=== PATIENT | female | born 2000 | race Caucasian/White ===

== ENCOUNTER 2024-04-29 09:19 | Emergency (ER) | payer BC, SELFPAY ==
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
[2024-04-29 11:00] VITALS: PULSE 70; RESP 16; O2SAT 99
== END 2024-04-29 11:00 | disposition home or self-care (01) ==
LOC: CHSED 10:47
PROVIDERS: Emergency Provider Emergency Medicine; PCP Family Medicine
DX: S00.33XA Contusion of nose, initial encounter (principal); W50.0XXA Accidental hit or strike by another person, initial encounter
CPT/HCPCS: 70160; 99283

== ENCOUNTER 2024-08-25 20:51 | Emergency (ER) | payer BC, SELFPAY ==
--- NOTE | ~2024-08-25 | XR_ITS ---
HISTORY: TRAUMA, distal left 5th toe pain COMPARISON: None TECHNIQUE: 2 views of the left fifth toe FINDINGS: No acute or subacute fracture. Joint spaces are preserved and alignment is maintained. Soft tissues are unremarkable without radiopaque foreign body or significant calcification. Age-appropriate mineralization. IMPRESSION: No acute fracture or dislocation. Reviewed, dictated and finalized at location A.
[2024-08-25 20:51] VITALS: BP 128/76; PULSE 84; RESP 18; TEMP 36.3; O2SAT 99
--- OUTSIDE RECORDS SUMMARY | 2024-08-25 20:52 | XMS_ITS | Data Portability ---
Author Organization AYESHA Alycia VAUGHN Address [address] [facility] [place] [address] Care Team Providers Care Doper Name Role Phone RAYMOND FARAHCY Greenskeeper Laborer Assessment Encounter Date Assessment Date Assessment LastModified by Organization Details LastModified Time 12/21/2022 12/21/2022 39 weeks+ , plan post dates induction next week with favorable cervix Not available 12/21/2022 11:11:33 01/09/2023 01/09/2023 doing well post , no PPD issues bottle feeding Not available 01/09/2023 10:09:58 02/06/2023 02/06/2023 Normal post exam after first vaginal delivery. baby doing well pumping plans IUD with first cycle, condom use until then Not available 02/06/2023 11:01:23 05/11/2023 05/11/2023 Mirena inserted without difficulty Dr Bailon assisting Not available 05/11/2023 10:49:45 08/07/2024 08/07/2024 buckle stringer exam benign likely early UTI, will RX with macrobid doing well with IUD Not available 08/07/2024 10:26:54 Plan of Treatment Reminders Order Date Submit Date Provider Last Modified By Organization Details Last Modified Time Details Appointments None recorded. Lab cytology report, thin prep, smear or scraping, cervical or vaginal 2024 025 [facility], [address] [place] [address] 2, [place], [address], 03/23/202 5 11:20:00 cytology report, thin prep, smear or scraping, cervical or vaginal 2022 023 [facility], [address] [facility] 2, [place], [address], 3 16:16:55 urinalysis, dipstick 2022 023 In-Office Order, Internal Use Only DO Not Attach Compendium DO Not Attach Compendium, Do Not Delete/merge, [id number] 3 11:11:34 Referral None recorded. Procedures None recorded. Surgeries None recorded. Imaging None recorded. Medication Orders Macrobid 100 mg capsule 2024 025 [id number], [address], [place], [id number], 5 10:27:01 Mirena 21 mcg/24 hr (up to 8 years) 52 mg intrauterin e device 2022 023 [id number], [address], [place], [id number], 3 10:49:46 Patient TargetsNo targets recorded. Patient Instructions Encounter Date Encounter Id Patient Instructions Last Modified By Organization Details Last Modified Time 01/09/2023 [id number] edinburgh depression scale* Not available 01/09/2023 10:09:59 02/06/2023 [id number] edinburgh depression scale* Not available 02/06/2023 11:01:24 08/07/2024 [id number] A healthy lifestyle: care instructions Not available 08/07/2024 10:20:50 Quitting Tobacco : Care Instructions Not available 08/07/2024 10:20:50 Reason for Referral None Reported. Results Created Date Observation Date Name Description Value Unit Range Abnormal Flag Note LastModifiedBy Organization Detail LastModifiedTime 11/24/1911/23/2022 urina lysis , dipst ick Protein Negati ve Not Available In-Office Order Internal Use Only DO Not Attach Compendium DO Not Attach Compendium, Do Not Delete/merge, [id number] 11/22/2022 10:11:13 11/24/1911/23/2022 urina lysis , dipst ick Glucose Negati ve Not Available In-Office Order Internal Use Only DO Not Attach Compendium DO Not Attach Compendium, Do Not Delete/merge, 11/22/2022 10:11:13 12/01/1911/30/2022 urina lysis , dipst ick Protein Negati ve Not Available In-Office Order Internal Use Only DO Not Attach Compendium DO Not Attach Compendium, Do Not Delete/merge, 11/29/2022 12:07:36 12/01/1911/30/2022 urina lysis , dipst ick Glucose Negati ve Not Available In-Office Order Internal Use Only DO Not Attach Compendium DO Not Attach Compendium, Do Not Delete/merge, 11/29/2022 12:07:36 12/08/19 23 12/07/2022 urina lysis , dipst ick Protein Negati ve Not Available In-Office Order Internal Use Only DO Not Attach Compendium DO Not Attach Compendium, Do Not Delete/merge, 12/06/2022 13:42:58 12/08/1912/07/2022 urina lysis , dipst ick Glucose Negati ve Not Available In-Office Order Internal Use Only DO Not Attach Compendium DO Not Attach Compendium, Do Not Delete/merge, 12/06/2022 13:42:58 12/15/19 23 12/14/2022 urina lysis , dipst ick Protein Negati ve Not Available In-Office Order Internal Use Only DO Not Attach Compendium DO Not Attach Compendium, Do Not Delete/merge, 12/13/2022 09:56:35 12/15/19 23 12/14/2022 urina lysis , dipst ick Glucose Negati ve Not Available In-Office Order Internal Use Only DO Not Attach Compendium DO Not Attach Compendium, Do Not Delete/merge, 12/13/2022 09:56:35 12/22/19 23 12/21/2022 urina lysis , dipst ick Protein Negati ve Not Available In-Office Order Internal Use Only DO Not Attach Compendium DO Not Attach Compendium, Do Not Delete/merge, [id number] 12/20/2022 11:26:07 12/22/19 23 12/21/2022 urina lysis , dipst ick Glucose Negati ve Not Available In-Office Order Internal Use Only DO Not Attach Compendium DO Not Attach Compendium, Do Not Delete/merge, [id number] 12/20/2022 11:26:07 01/10/20 23 01/09/2023 edinb urgh postn atal depre ssion scale * Score 1 Not Available In-Office Order Internal Use Only DO Not Attach Compendium DO Not Attach Compendium, Do Not Delete/merge, [id number] 01/09/2023 09:56:18 02/07/20 23 02/07/2023 IGP, RFX APTIM A HPV ASCU diagnosis: Commen t NEGAT HAL FOR INTRA EPITH ELIAL LESRONAK N OR RICHARD BELL . POST- PARTU M ZHANG ES ARE PRESE NT. Not Available [facility] [address] [facility], [place], [address], 02/07/2023 16:16:55 02/07/20 23 02/07/2023 IGP, RFX APTIM A HPV ASCU specimen adequacy: Commen t Satis facto ry for evalu ation . Endoc ervic al and/o r squam ous metap lasti c cells (endo cervi juana compo nent) are prese nt. Not Available [facility]) [address] [facility], [place], [address], 02/07/2023 16:16:55 02/07/20 23 02/07/2023 IGP, RFX APTIM A HPV ASCU clinician provided ICD10: Commen t Z39.2 Not Available [facility]) [address] [facility], [place], [address], 02/07/2023 16:16:55 02/07/20 23 02/07/2023 IGP, RFX APTIM A HPV ASCU performed by: Anamika franks, Cytojagdeep gannon (ASCP ) Not Available [facility] [address] [place], [address], 02/07/2023 16:16:55 02/07/20 23 02/07/2023 IGP, RFX APTIM A HPV ASCU . . Not Available [facility] [address] [place], [address], 02/07/2023 16:16:55 02/07/20 23 02/07/2023 IGP, RFX APTIM A HPV ASCU note: Anamika t The Pap smear is a scree bronson test desig fredi to aid in the detec tion of sherman ligna nt and malig nant condi tions of the uteri ne cervi x. It is not a diagn ostic proce dure and shoul d not be used as the sole means of detec ting cervi juana cance r. Both false -posi tive and false -nega tive repor ts do occur . Not Available [facility] [address] [place], [address], 02/07/2023 16:16:55 02/07/20 23 02/07/2023 IGP, RFX APTIM A HPV ASCU test methodology: Anamika t This liqui d based ThinP rep(R ) pap test was scree fredi with the use of an image guide d syste m. Not Available [facility]) [address] [place], [address], 02/07/2023 16:16:55 02/07/20 23 02/07/2023 IGP, RFX APTIM A HPV ASCU . Anamika t The HPV DNA refle x crite pretty were not met with this speci men resul t there fore, no HPV testi ng was perfo rmed. Not Available [facility] [address] [place], [address], 02/07/2023 16:16:55 02/07/2002/06/2023 edinb urgh postn atal depre ssion scale * Score 0 Not Available In-Office Order Internal Use Only DO Not Attach Compendium DO Not Attach Compendium, Do Not Delete/merge, [id number] 02/06/2023 10:22:45 08/08/19 25 08/10/2024 IGP, RFX APTIM A HPV ASCU diagnosis: ANAMIKA HONG FOR INTRA EPITH ELIAL CARA Felipe OR RICHARD BELL . Not Available [facility] [address] [facility], [place], [address], 08/10/2024 11:20:00 08/08/19 25 08/10/2024 IGP, RFX APTIM A HPV ASCU specimen adequacy: ANAMIKA Gannon Satis factnima velez for evalu ation . Endoc ervic al and/o r squam ous metap lasti c cells (endo cervi juana compo nent) are prese nt. Not Available [facility] [address] [facility], [place], [address], 08/10/2024 11:20:00 08/08/19 25 08/10/2024 IGP, RFX APTIM A HPV ASCU clinician provided ICD10: ANAMIKA Gannon Z01.4 19 Not Available [facility] [address] [place], [address], 08/10/2024 11:20:00 08/08/19 25 08/10/2024 IGP, RFX APTIM A HPV ASCU performed by: ANAMIKA pinedo, Cytot gurjit gannon (ASCP ) Not Available [facility] [address] [place], [address], 08/10/2024 11:20:00 08/08/19 25 08/10/2024 IGP, RFX APTIM A HPV ASCU . . Not Available [facility] [address] [place], [address], 08/10/2024 11:20:00 08/08/19 25 08/10/2024 IGP, RFX APTIM A HPV ASCU note: COMMEN T The Pap smear is a scree bronson test umesh rai to aid in the detec tion of sherman ligna nt and malig nant condi tions of the uteri ne cervi x. It is not a diagn ostic proce dure and shoul d not be used as the sole means of detec ting cervi juana cance r. Both false -posi tive and false -nega tive repor ts do occur . Not Available [facility] [address] [place], [address], 08/10/2024 11:20:00 08/08/19 25 08/10/2024 IGP, RFX APTIM A HPV ASCU test methodology: COMMEN T This liqui d based ThinP rep(R ) pap test was screclark rai with the use of an image guide jose luna. Not Available [facility] [address] [facility], [place], [address], 08/10/2024 11:20:00 08/08/19 25 08/10/2024 IGP, RFX APTIM A HPV ASCU . COMMEN T The HPV DNA refle x crite pretty were not met with this speci men resul t there fore, no HPV testi ng was perfo rmed. Not Available [facility] [address] [place], [address], 08/10/2024 11:20:00 12/07/19 23 12/06/2022 US, obste tric, follo w-up No observ ation record ed. [facility] [address] [facility] [place], [address], 12/07/2022 09:47:37 01/12/20 23 12/06/2022 US, obste tric, follo w-up No observ ation record ed. [email or web address] [facility] [address] [facility], [address], 01/11/2023 09:56:31 Result Notes None recorded. Problems Name Problem SNOMED Code Status Onset Date Resolution Date Notes Provider Name and Address Organization Details Recorded Time 09774780 Completed 202201/09/2023 JCARLOS Pedroza null, [place] - [facility] 3 10:02:16 Acute upper respirato ry infection 94380639 Active Sharon Burch [place], [place] [facility] 6 10:55:17 Contact dermatiti s 89026650 Active Sharon Burch [place], [place] [facility] 6 10:55:17 Closed fracture of nasal bones 21727826 Active 2014 Sharon Burch [place], [place] [facility] 6 10:55:17 Fatigue 13494082 Active Sharon Burch [place] [facility] 6 10:55:17 Sprain of ankle 67745647 Active Ishan Bell MD Attn: Accounting,[address] [place], [address], [place] [facility] 6 10:29:38 Problem Notes None recorded. Procedures Surgical History Date Name Laterality Status Provider Name and Address Organization Details Recorded Time 5 Date of Last Pap Smear completed JCARLOS Pedroza [place] - [facility] 08/11/2024 09:39:19 3 IUD Insertion completed Cristóbal Rae MD Attn: Accounting,[address] [place], [address], [place] [facility] 05/11/2023 10:48:04 2 Control Implant Removal completed JOSEPH Kern Attn: Accounting,[address] [facility] [place] [place], [address], [place] [facility] 10/25/2021 10:33:37 1 Control Implant Removal completed JOSEPH Kern Attn: Accounting,[address] [facility], [place], [address], [place] [facility] 10/12/2020 11:54:50 1 Control Implant Insertion completed JOSEPH Kern Attn: Accounting,[address] [facility], [place], [address], [place] [facility] 10/12/2020 11:54:47 8 Control Implant Insertion completed JOSEPH Kern Attn: Accounting,[address] [facility], [place], [address], [place] [facility] 03/27/2018 10:18:01 5 Nasal Surgery completed Jo Ann Rhodes MD Attn: Accounting,[address] [facility], [place], [address], [place] [facility] 02/08/2015 13:32:59 Imaging Results Imaging Date Name Status LastModified by Organiz ation Details LastModified Time 12/06/2022 US, obstetric, follow-up completed [address] [place], [address], 12/07/2022 09:47:37 12/06/2022 US, obstetric, follow-up completed [email or web address] [address] [place], [address], 01/11/2023 09:56:31 Procedure Notes None recorded. Medical Equipment None Reported. Allergies No known drug allergies Medications Name Sig Start Date Stop Date Status Note LastModified by Organization Details LastModified Time Prescript ion - Prior Authoriza tion Request 07/20 completed Not Available Not Available Not Available cyclobenz aprine 10 mg tablet 02/03 completed Not Available Not Available Not Available amoxicill in 500 mg capsule TAKE 1 CAPSULE BY MOUTH THREE TIMES DAILY 05/18 completed Not Available Not Available Not Available Mirena 21 mcg/24 hr (up to 8 years) 52 mg intrauter ine device Take 1 device by intraute rine route. 2022 active ordered through pts insuranc e Not Available Not Available Not Available prednison e 10 mg tablet 02/03 completed Not Available Not Available Not Available ketoconaz ole 2 % shampoo Use on scalp twice a week for 2 weeks. 08/24 completed Not Available Not Available Not Available meloxicam 15 mg tablet TAKE 1 TABLET BY MOUTH DAILY WITH FOOD 02/03 completed Not Available Not Available Not Available sumatript an 25 mg tablet TAKE 1 TABLET BY MOUTH AT ONSET OF HEADACHE MAY REPEAT AFTER 2 HOURS 02/03 completed Not Available Not Available Not Available Debrox 6.5 % ear drops 10/05 completed Not Available Not Available Not Available naproxen 250 mg tablet Take 1 tablet twice a day by oral route as needed for 7 days. 08/24 completed Not Available Not Available Not Available hydroxyzi ne pamoate 50 mg capsule TAKE 2 CAPSULES BY MOUTH AT BEDTIME 02/03 completed Not Available Not Available Not Available tramadol 50 mg tablet TAKE 1 TO 2 TABLETS BY MOUTH EVERY 6 HOURS NEEDED FOR PAIN 02/03 completed Not Available Not Available Not Available cefadroxi l 500 mg capsule 07/20 completed Not Available Not Available Not Available malathion 0.5 % lotion Apply 1 applicat ion by topical route for 1 day. 07/20 completed Not Available Not Available Not Available cephalexi n 500 mg capsule TAKE 1 CAPSULE BY MOUTH THREE TIMES DAILY 02/03 completed Not Available Not Available Not Available tobramyci n 0.3 % eye drops 10/05 completed Not Available Not Available Not Available ibuprofen 400 mg tablet 07/20 completed Not Available Not Available Not Available omeprazol e 20 mg capsule,d elayed release TK ONE C PO D 10/05 completed Not Available Not Available Not Available ergocalci ferol (vitamin D2) 1,250 mcg (50,000 unit) capsule Take by oral route 1 capsule once a week for 4 weeks. 02/03 completed Not Available Not Available Not Available methylpre dnisolone 4 mg tablets in a dose pack 10/05 completed Not Available Not Available Not Available SSD 1 % topical cream APPLY TOPICALL Y TO THE AFFECTED AREA TWICE DAILY 02/03 completed Not Available Not Available Not Available hydrocort isone 2.5 % topical ointment Apply by topical route once a day to affected area of body. 08/24 completed Not Available Not Available Not Available ondansetr on 4 mg disintegr ating tablet DISSOLVE 2 TABLETS ON THE TONGUE TWICE DAILY 02/06 completed Not Available Not Available Not Available metoclopr amide 10 mg tablet 02/06 completed Not Available Not Available Not Available amoxicill in 875 mg-potass ium clavulana te 125 mg tablet TAKE 1 TABLET BY MOUTH TWICE DAILY 05/18 completed Not Available Not Available Not Available naproxen 375 mg tablet,de layed release Take 1 tablet every 12 hours by oral route for 7 days. 08/24 completed Not Available Not Available Not Available Lice Killing (permethr in) 1 % topical liquid Apply 1 mL every day by topical route. 07/20 completed Not Available Not Available Not Available escitalop chavez 10 mg tablet 02/03 completed Not Available Not Available Not Available escitalop chavez 20 mg tablet TAKE 1 TABLET BY MOUTH DAILY 02/03 completed Not Available Not Available Not Available nitrofura ntoin monohydra te/macroc rystals 100 mg capsule TAKE 1 CAPSULE BY MOUTH EVERY 12 HOURS FOR 7 DAYS active Not Available Not Available No t Available spinosad 0.9 % topical suspensio n Apply to scalp and use as directed . May repeat tx. in 1 week. 08/24 completed Not Available Not Available Not Available Nexplanon 68 mg subdermal implant Inject 1 implant by subcutan eous route. 02/03 completed Not Available Not Available Not Available 28 mg iron-800 mcg tablet TAKE 1 TABLET BY MOUTH DAILY 08/07 completed Not Available Not Available Not Available Estarylla 0.25 mg-0.035 mg tablet TAKE 1 TABLET BY MOUTH EVERY DAY 02/03 completed Not Available Not Available Not Available COVID-19 test specimen collectio n TEST DIRECTED TODAY 10/25 completed Not Available Not Available Not Available Vitals Date Recorded Body height Body mass index (BMI) Body mass index (BMI) Percentile per age and sex Systolic blood pressure Diastolic blood pressure Provider Name and Address Organization Details Last Updated DateTime 12/21/2022 166.37 cm 27.1 kg/m2 86 % 117 mm[Hg] 75 mm[Hg] Vanessa Napoles [facility] 3 10:48:08 Date Recorded Body weight Provider Name an d Address Organization Details Last Updated DateTime 12/21/2022 27736.225068 g Cristóbal Rae MD Attn: Accounting,[address] [facility], [place], [address], [facility] 12/21/2022 11:11:12 Date Recorded Body height Body mass index (BMI) Body mass index (BMI) Percentile per age and sex Body weight Systolic blood pressure Diastolic blood pressure Provider Name and Address Organization Details Last Updated DateTime 3 166.37 cm 23.1 kg/m2 63 % 44736.6 19220 g 112 mm[Hg] 74 mm[Hg] Vanessa Napoles [facility] 3 10:01:34 Date Recorded Body height Body mass index (BMI) Percentile per age and sex Body mass index (BMI) Body weight Systolic blood pressure Diastolic blood pressure Provider Name and Address Organization Details Last Updated DateTime 3 166.37 cm 62 % 23 kg/m2 29146.0 1 g 112 mm[Hg] 74 mm[Hg] Vanessa Napoles [facility] 3 10:33:45 Date Recorded Body height Body mass index (BMI) Body weight Systolic blood pressure Diastolic blood pressure Provider Name and Address Organization Details Last Updated DateTime 05/11/2023 166.37 cm 23.8 kg/m2 95407.18 g 106 mm[Hg] 74 mm[Hg] Vanessa Napoles [facility] 3 10:26:18 Date Recorded Body height Body mass index (BMI) Body weight Systolic blood pressure Diastolic blood pressure Provider Name and Address Organization Details Last Updated DateTime 08/07/2024 166.37 cm 26.2 kg/m2 69910.92 g 109 mm[Hg] 74 mm[Hg] Vanessa Napoles [facility] 5 10:15:00 Social History Question Answer Notes LastModified by Organizat ion Details LastModified Time Tobacco Smoking Status Never Smoker Nazia Humza [facility] 04/22/2014 14:54:24 What Is Your Level Of Alcohol Consumption? None [email or web address] Information not available 07/07/2022 Animal Exposure? Yes 4 Dogs, 3 Cats Information not available 04/22/2014 Do You Wear A Helmet When Biking? No Information not available 04/22/2014 Are You Or Have You Been Involved With Bullying? No [email or web address] Information not available 07/20/2016 What Is Your Level Of Caffeine Consumption? Occasional Information not available 04/22/2014 What Type Of Hand Rigger Do You Use? None [email or web address] Information not available 07/20/2016 In The 14 Days Before Symptom Onset, Have You Had Close Contact With A Laboratory-confi rmed COVID-19 While That Case Was Ill? No [email or web address] Information not available 02/01/2021 In The 14 Days Before Symptom Onset, Have You Had Close Contact With A Person Who Is Under Investigation For COVID-19 While That Person Was Ill? No [email or web address] Information not available 02/01/2021 Have You Been To An Area Known To Be High Risk For COVID-19? No [email or web address] Information not available 02/01/2021 What Type Of Diet Are You Following? REGULAR Information not available 04/22/2014 Do You Or Have You Ever Used E-cigarettes Or Vape? Current User Of Electronic Cigarettes not Very Often Information not available 08/07/2024 Have There Been Any Changes To Your Family Or Social Situation? No [email or web address] Information not available 07/20/2016 What Is The Fluoride Status Of Your Home? Fluoridated [email or web address] Information not available 07/20/2016 Are There Any Guns Present In Your Home? No [email or web address] Information not available 07/20/2016 What Is Your Home Situation? Both Parents Mom, Dad And Sister, Nephew Information not available 04/22/2014 Do You Use Insect Repellent Routinely? Yes [email or web address] Information not available 07/20/2016 Car Seat Type Or Seat Belt? Seat Belt Information not available 04/22/2014 Parent Involvement? Both Parents Involved Information not available 07/20/2016 Riding In Car Front Seat? Yes Sometimes Information not available 04/22/2014 What Was The Date Of Your Most Recent Tobacco Screening? 08/07/2024 Information not available 08/07/2024 What Is Your Parents' Marital Status? [email or web address] Information not available 07/20/2016 Pool Exposure No [email or web address] Informatio n not available 07/20/2016 What Is Your Relationship Status? Single [email or web address] Information not available 10/05/2020 What Is The Name Of Your School? [employer] Information not available 12/28/2016 Are You Sexually Active? Yes Information not available 10/05/2020 Do You Have Any Siblings? 3 Sters [email or web address] Information not available 07/20/2016 Do You Have Smoke And Carbon Monoxide Detectors In Your Home? Yes Information not available 04/22/2014 Are You Passively Exposed To Smoke? No Information not available 04/22/2014 Do You Or Have You Ever Used Smokeless Tobacco? Never Used Smokeless Tobacco Information not available 08/07/2024 What Types Of Sporting Activities Do You Participate In? None Information not available 04/22/2014 Do You Use Any Illicit Or Recreational Drugs? No [email or web address] Information not available 02/03/2022 Do You Use Sunscreen Routinely? Yes [email or web address] Information not available 07/20/2016 Has Tobacco Cessation Counseling Been Provided? Yes Information not available 08/07/2024 On What Date Was Tobacco Cessation Counseling Provided? 08/07/2024 Information not available 08/07/2024 Year In School 9 Informatio n not available 12/28/2016 Do You Or Have You Ever Used Any Other Forms Of Tobacco Or Nicotine? Yes Information not available 08/07/2024 Sex: Female Functional Status Question Answer Note LastModified by Organization D etails LastModified Time What is your exercise level? Moderate Information not available 04/22/2014 Mental Status None recorded. Family History Relationship Description Onset Age of this Age Resolved Age Notes LastModified by Organization Details LastModified Time Paternal Grandmother Family history of malignant neoplasm [email or web address] Not available 10/2017 14:02:46 Maternal Grandmother Diabetes mellitus [email or web address] Not available 10/2017 14:02:34 Father No current problems or disability [email or web address] Not available 11/09 13:57:57 Mother No current problems or disability [email or web address] Not available 11/09 13:57:57 Medical History Condition Response Blood Diseases N Ear or Hearing Problems N Thyroid Problems N Depression N Developmental or Behavioral Disorders N Skin Problems N Premature N Anemia N Constipation N Anxiety Disorder N Diabetes N Muscle, Joint, or Bone Problems N Bedwetting N Vision or Eye Problems N Heart Problems/Murmur N Seizures/Epilepsy N Head Injury/Concussion N Cancer N Asthma Y Allergies N ADHD N Bladder or Kidney Problems N Headaches N Chicken Pox N Autism Spectrum Disorder (ASD) N Gynecological History Statement/Question Response Abnormal Pap N Flow Moderate Date of LMP 02/15/2022 On BCP's at Conception? N STIs/STDs N HPV Vaccine Y Duration of Flow (days) 7 Age at Menarche 15 Current Control Method IUD Sexually Active? Y Menses Monthly N Date of Last Pap Smear 08/07/2024 Sexual Problems? N LMP Approximate Desired Control Method IUD Obstetrics History GPAL:G 1 P 1 0 0 1 Type Value Full Term 1 Living 1 Total 1 Immunizations Vaccine Type Date Status Note Provider Nam e and Address Organization Details Recorded Time COVID-19, mRNA, LNP-S, PF, 30 mcg/0.3 mL dose 1 completed Vanessa Napoles RMA null, [place] [facility] 11/09/2022 13:51:13 COVID-19, mRNA, LNP-S, PF, 30 mcg/0.3 mL dose 1 completed Vanessa Napoles [place] [facility] 11/09/2022 13:51:13 NUqU-Nhq-SMU 4 completed Vanessa Napoles R[place] [facility] 11/09/2022 13:51:13 influenza, split (incl. purified surface antigen) 8 completed Vanessa Napoles R[place] [facility] 11/09/2022 13:51:13 Influenza, split virus, quadrivalent, preservative 2 completed JCARLOS Pedroza [place] [facility] 11/09/2022 13:51:26 varicella 3 completed JCARLOS [place] [facility] 02/06/2023 09:48:15 Influenza, split virus, quadrivalent, preservative 7 completed Not Available [facility] 06/07/2019 02:33:26 Influenza, split virus, quadrivalent, preservative 7 completed Not Available [facility] 06/07/2019 02:34:27 HPV, quadrivalent 4 completed Not Available [facility] 06/07/2019 02:33:58 Influenza, split virus, trivalent, preservative 4 completed Not Available [facility] 06/07/2019 02:32:02 DTaP-Hep B-IPV 4 completed Ciera Michaels [place] [facility] 04/12/2015 18:13:40 DTaP-Hep B-IPV 3 completed Ciera Mich[place] [facility] 04/12/2015 18:13:41 DTaP 5 completed GAUDENCIO [place] [facility] 04/12/2015 18:13:59 DTaP 4 completed Not Available [facility] 05/11/2023 10:13:40 DTaP 7 [place] GAUDENCIO [place] [facility] 04/12/2015 18:13:59 Hep A, ped/adol, 2 dose 6 completed Ciera [place] [facility] 04/12/2015 18:14:46 Hib, unspecified formulation 4 completed GAUDENCIO [place] [facility] 04/12/2015 18:14:46 Hep A, ped/adol, 2 dose 6 [place] GAUDENCIO [place] [facility] 04/12/2015 18:14:46 Hib, unspecified formulation 3 completed GAUDENCIO [place] [facility] 04/12/2015 18:14:46 Hib, unspecified formulation 4 completed [facility] Available [facility] 05/11/2023 10:13:39 HPV, unspecified formulation 4 completed GAUDENCIO [place] [facility] 04/12/2015 18:14:46 influenza, unspecified formulation 8 completed Not Available [facility] 05/11/2023 10:13:40 influenza nasal, unspecified formulation 1 completed Ciera [place] [facility] 04/12/2015 18:15:11 IPV 7 completed GAUDENCIO [place] [facility] 04/12/2015 18:16:24 pneumococcal conjugate PCV 7 4 completed [place]iera [place] [facility] 04/12/2015 18:16:24 MMRV 7 completed [place]CARLOS [place] [facility] 12/06/2022 13:43:12 pneumococcal conjugate PCV 7 3 completed Ciera [place] [facility] 04/12/2015 18:16:24 MMR 4 completed GAUDENCIO [place] [facility] 04/12/2015 18:16:24 meningococcal MCV4, unspecified formulation 4 completed GAUDENCIO [place] [facility] 04/12/2015 18:16:24 IPV 4 completed Not Available [facility] 05/11/2023 10:13:40 varicella 4 completed Ciera [place] [facility] 04/12/2015 18:18:11 Tdap 4 completed GAUDENCIO [place] [facility] 04/12/2015 18:18:11 Tdap 3 completed Cristóbal Rae MD Attn: Accounting[address] [place], [address], [place] [facility] 11/09/2022 14:23:49 Hep B, unspecified formulation 2 completed Josey Jean MA [facility], [place] - [facility] 07/20/2016 10:15:28 HPV9 5 completed Not Available [facility] 06/07/2019 02:47:56 Influenza, live, quadrivalent, intranasal 5 completed Not Available [facility] 06/07/2019 02:39:22 Past Encounters Encounter ID Performer Location Encounter Start Date Encounter Closed Date Diagnosis/Indication Diagnosis SNOMED-CT Code Diagnosis ICD10 Code Diagnosis Note [id number] [facility] (Peds) [address] [place] [address] 04/22/2014 14:39:55 05/04/2014 12:26:01 Acute upper respiratory infection [id number] Symptomati c care. Monitor for any high fever or worsening cough. Administra tion of influenza vaccine [id number] Contact dermatitis 41791443 Advised to stop licking area around lips and to apply vaseline to area at least 3 times a day. Can mix hydrocorti sone with the vaseline and apply to affected area BID for up to 1- 2 weeks. Active or passive immunization [id number] [facility] [address] [place] [address] 04/13/2015 09:43:04 04/13/2015 18:11:30 Fatigue 49734023 R53.83 Will check screening labs. Recommeded pt. keep a journal of pt's sleeping times. Told to eliminate all caffeinate d beverages, remove all distractio ns from room and keep a regular routine with sleep on weekends as well. F/u in 1 month. Active or passive immunization 222452281 Z23 [id number] [facility] [address] [place] [address] 01/19/2016 10:39:08 01/19/2016 13:46:43 Sprain of ankle 73009656 S93.401A continue to use crutches prn and ibuprofen prn pain. keep foot elevated prn and use ice prn. if symtposm fail to improve in the next week obtain mri. [id number] Jo AnnMD [facility] (Peds) [address] [place] [address] 07/20/2016 14:34:14 07/26/2016 12:49:31 Backache 571798393 M54.9 Discussed apply heat to muscles, massage and naproxen. Notify if no improvemen t within 2 weeks, sooner if any new sx. such as numbness or tingling occur. Sit in chair with lumbar support. Do not carry heavy backpack. Do exercises that strengthen core muscles. Consider PT if no improvemen t. Discussed healthy diet and getting regular exercise. Administra tion of influenza vaccine 51285925 Z23 Depression screening 171 893043 Z13.89 Scored 4 [id number] MD Nicolle Xie (Peds) [address] [place] [address] 12/28/2016 15:46:59 01/01/2017 11:31:01 Well child 186623454 Z00.129 BMI 56 %. Anticipato ry guidance given. Shots UTD. Irritant c ontact dermatitis due to lip-licking 801806396 L71.0 Appears to be mild at this time. Discussed habit reversal training. [id number] GAUDENCIO Fortune (Peds) [address] [place] [address] 02/27/2017 15:21:36 02/28/2017 11:49:56 Biceps tendinitis 365423977 M75.22 Will prescribe naproxen. RICE tx. Seborrheic dermatitis of scalp 161418395 L21.0 DDX includes scalp psoriasis. Reviewed scalp care. Will prescribe ketoconazo le shampoo. Pediculosis capitis 8100 0006 B85.0 Pt. exposed to a friend who has lice, will treat. Active or passive immunization 600551894 Z23 [id number] MD Nicolle Xie (Peds) [address] [place] [address] 03/19/2017 11:08:47 03/21/2017 14:40:52 Shoulder joint pain 372046255 M25.519 Suspect tendinitis due to pt. playing clarinet and holding arms outward for extended period of time. On last visit prescribed naproxen, but pt. still c/o pain. Recommend resting shoulder for next 2 weeks. Note given for no band and no gym for 2 weeks. F/u in 2 weeks if no improvemen t. Can take naproxen or ibuprofen prn as directed. [id number] MD Nicolle Xie (Peds) [address] [place] [address] 04/19/2017 14:36:30 04/19/2017 17:16:59 Shoulder pain 82066136 M25.512 L shoulder pain that has been persistent . Will refer to ortho for further evaluation . Will give refill on naproxen. [id number] GAUDENCIO Sung (Peds) [address] [place] [address] 08/24/2017 13:47:36 08/28/2017 10:11:48 Insect bite to arm - nonvenomous 930583831 S40.862A [id number] JOSEPH Kern [address] [place] [address] [place] [address] 03/15/2018 09:13:07 03/15/2018 11:48:03 Contraception care management 197166675 Z30.9 [id number] JOSEPH Kern [address] [place] [address] [place] [address] 03/27/2018 09:26:31 03/28/2018 10:34:49 Contraception care 834308630 Z30.40 [id number] JOSEPH Kern [address] [place] [address] [place] [address] 10/09/2019 09:25:36 10/09/2019 15:31:30 Right lower quadrant pain 465219440 R10.31 Pt to call [facility] and sign release for this provider to obtain scans. Will place GI referral at this time to rule out and GI issues that could be causing pain. Pt verbalizes understand ing. Will follow up after records are received. [id number] JOSEPH Kern OB [address] [place] [address] [place] [address] 10/05/2020 11:40:29 10/06/2020 11:08:44 Contraception care management 257626108 Z30.9 1. All forms of control reviewed with patient including risks, benefits, pros and cons. 2. Patient verbalized understand ing of all forms and that abstinence is the only true form of control. 3. Condom use reviewed as well and prevention and transmissi on of STD's. 4. Pt to come in 10/12/20 for nexplanon removal and reinsertio n. Pt v/u. [id number] JOSEPH Kern [address] [place] [address] 10/12/2020 11:50:16 10/13/2020 12:08:33 Insertion of subcutaneous contraceptive 021243493 Z30.9 1. All forms of control reviewed with patient including risks, benefits, pros and cons. 2. Patient verbalized understand ing of all forms and that abstinence is the only true form of control. 3. Condom use reviewed as well and prevention and transmissi on of STD's. 4. Nexplanon inserted without issue. Pt educated on side effects. 5. Will follow up in 3 months for med check, sooner if needed. Removal of subcutaneous contraceptive done [id number] 72149 Z98.890 Nexplanon removed without issue. Pt verbalizes that fertility will resume and if trying to become , she needs to begin vits now. Pt verbalized understand ing. Pt will follow up as needed for annual, sooner if needed or if pt would like new form of control. [id number] JOSEPH Kern [address] [place] [address] [place] [address] 01/11/2021 10:18:12 01/12/2021 07:18:36 Irregular periods 63343224 N92.6 Pt encouraged to keep period tracker for next several months. Educated on things that can cause cycle to become irregular including but not limited to stress, exercise, weight loss, weight gain, major life changes etc. Pt verbalized understand ing. Will follow up in 3 months to discuss if meds are helping and if to continue on ocp therapy. [id number] JOSEPH Kern [address] [place] [address] 02/01/2021 14:53:41 02/02/2021 13:03:56 Irregular periods 10049603 N92.6 Pt encouraged to keep period tracker for next several months. Educated on things that can cause cycle to become irregular including but not limited to stress, exercise, weight loss, weight gain, major life changes etc. Pt verbalized understand ing. Will follow up in 3 months to discuss if meds are helping and if to continue on ocp therapy. At [facility] risk of urinary tract infection 578574855 Z91.89 1. Will monitor as dip was negative. 2. Pt instructed to increase fluids, decrease soda, sugary beverages and caffeinate d beverages. 3. To call office if symptoms worsen or do not improve changes. [id number] [facility] Jose Martin [address] [facility] [place] [address] 07/05/2021 09:47:10 07/06/2021 06:12:58 Irregular periods 69328617 N92.6 Pt encouraged to keep period tracker for next several months. Educated on things that can cause cycle to become irregular including but not limited to stress, exercise, weight loss, weight gain, major life changes etc. Pt verbalized understand ing. Will follow up in 3 months to discuss if meds are helping and if to continue on ocp therapy. Pt will decided if she would like Nexplanon removed and to begin ocp regularly. [id number] JOSEPH Kern [address] [facility] [place] [address] 10/25/2021 10:51:30 10/26/2021 07:41:33 Removal of subcutaneous contraceptive 069346822 Z30.46 Nexplanon removed without issue. Pt verbalizes that fertility will resume and if trying to become , she needs to begin vits now. Pt verbalized understand ing. Pt will follow up as needed for annual, sooner if needed or if pt would like new form of control. [facility] ion care management 415886611 Z30.9 1. All forms of control reviewed with patient including risks, benefits, pros and cons. 2. Patient verbalized understand ing of all forms and that abstinence is the only true form of control. 3. Condom use reviewed as well and prevention and transmissi on of STD's. [id number] [facility] [address] [place] [address] 02/03/2022 11:06:35 02/05/2022 11:34:15 Irregular periods 29889300 N92.6 Pt encouraged to keep period tracker for next several months. Educated on things that can cause cycle to become irregular including but not limited to stress, exercise, weight loss, weight gain, major life changes etc. Pt verbalized understand ing. Will follow up in [id number] Tonya Farah [facility] Jose Martin 14 OB [address] [place] [address] 05/18/2022 14:42:03 05/19/2022 08:41:41 test positive 959800530 Z32.01 Pt requests a serum blood test for . Pt educated on reasons cycle may be late or irregular including chronic illnesses like diabetes or htn, stress, weight gain or weight loss, diet changes. Pt verbalized understand ing and will follow up pending results. [id number] Tonya Farah [facility] Jose Martin 14 [address] [place] [address] 07/07/2022 12:14:01 07/10/2022 06:42:29 Routine care 437069158 Z34.92 Hyperemesi s gravidarum 12690850 O21.0 [id number] MD Jose Martin Marie [address] [place] [address] 11/09/2022 13:38:07 11/18/2022 09:36:41 Normal 96890501 Z34.90 Administra tion of diphtheria, pertussis, and tetanus vaccine 957426767 Z23 [id number] MD Jose Martin Marie [address] [place] [address] 11/23/2022 10:11:10 11/28/2022 15:40:59 Normal 74709319 Z34.90 [id number] MD Jose Martin Marie 14 [address] [facility] [place] [address] 11/30/2022 10:14:14 12/05/2022 10:35:27 Normal 18734411 Z34.90 [id number] MD Jose Martin Marie [address] [place] [address] 12/07/2022 10:06:18 12/12/2022 10:36:43 Normal [id number] Z34.90 [id number] MD Jose Martin Marie [address] [place] [address] 12/14/2022 09:56:13 12/18/2022 08:30:31 Normal 02958982 Z34.90 [id number] MD Jose Matrin Marie 14 [address] [place] [address] 12/21/2022 10:36:27 12/26/2022 12:02:56 Normal 98637297 Z34.90 [id number] MD Jose Martin Marie [address] [place] [address] 01/09/2023 09:47:54 01/10/2023 08:51:12 care 640011136 Z39.2 [id number] MD Jose Martin Marie [address] [place] [address] 02/06/2023 10:13:56 02/07/2023 09:11:54 care 760163597 Z39.2 [id number] MD Jose Martin Marie [address] [place] [place] [address] 05/11/2023 10:11:55 05/15/2023 08:24:59 Contraception care management 847089257 Z30.9 [id number] MD Jose Martin Marie [address] [place] [address] 08/07/2024 09:40:25 08/14/2024 09:36:06 Depression screening 522391989 Z13.31 Overweight 831548642 E66 .3 Smoker 06850745 F17.200 Gynecologi c examination 76017660 Z01.419 Acute urin toma tract infection 985704158 N39.0 Health Concerns Section Related Observation LastModified by Organization Detai ls LastModified Time None Recorded Concern Status LastModified by Organization Details LastModified Time None Recorded Advance Directives Directive None Recorded Payers Encounter Date Sequence Insurance Name Policy Number Policy Jiang Covered Member ID Jiang Member ID Guarantor Name 12/21/2022 1 [employer] (PPO) [id number] Velvet Burton [id number] Velvet Burton 01/09/2023 1 [employer] (PPO) [id number] Velvet Burton [id number] Velvet Braisher 02/06/2023 1 [employer] (PPO) [id number] Velvet Romarioisher [id number] Velvet Braisher 05/11/2023 1 [employer] (PPO) [id number] Velvet Burton [id number] Velvet Braolayinka 08/07/2024 1 [facility] (MEDICAID REPLACEMENT - HMO) [id number] Caren Burton [id number] Velvet Manrique Notes Date Note Type Note Provider Name and Address Organization Details Recorded Time 01/09/2023 text/html 2 weeks out from first vaginal delivery ( post dates induction) pumping, no PPD issues, bleeding minimal, no interest in hormonal contraception at this point Cristóbal Rae MD Attn: [address]ing[address] [place], [address], [facility] 01/09/2023 10:10:12 08/07/2024 text/html Annual GYNReport ed bypatient.Menstrual cycle:no period with IUD Urinary symptoms:No hematuria; No incontinence Vulva:No genital lesion Vagina:Normal vaginal discharge Breast:No breast pain; No breast lump; No nipple discharge Current Contraception:Intra uterine device (iud) Sexual complaints:No sexual complaints; No pain during intercourse; Normal libido Menopausal Symptoms:No menopausal symptoms; Normal vaginal lubrication Psychological symptoms:No depression; No anxiety; No PMDD some UTI symptoms Cristóbal Rae MD Attn: Accounting[address] [place], [address], [facility] 08/07/2024 10:27:13 OBGyn Episode Ob Episode Information Episode Created Date Number of Fetuses Patient Bloodtype Patient rh Status Prepregnancy Weight lbs Domestic Partner Domestic Partner Phone Father Name Hand Stemmer Status 05/23/19 23 1 A Positive CLOSED Fetus Data First Name Last Name Admitted to NICU Weight (g) Sex Living Outcome Pediatric Complications Fetus ID Race Codes Race Delivery Type Chace false 3770.48 35 M true Full Term [id number] 2106-3 White Vaginal Blue Calculation Initial Blue Date Initial Exam Date Initial Exam Provider Initial Ultrasound Date Last Menstrual Period Date Ultra Sound Weeks Gestation 12/25/2022 05/23/2022 [email or web address] 07/03/2022 02/15/2022 15 Eighteen To Twenty Week Blue Update Ultra Sound Date Fundal Height At Umbil Quickening Date Ultra Sound Latest Weeks Gestation Final Blue Confirmed By Final Blue Confirmed Date Final Blue Date Ultra Sound Latest Days Gestation 08/26/19 23 21 [email or web address] 07/04/2022 023 3 Pre-abby Flowsheet Flowsheet Date 07/07/2022 Lucas Score Blood Edema Fundus Height Fundus Units Glucose Ketones Leukocytes Nitrite Labor Signs Protein Cervic Dilation Cervic Effacement Cervic Station none none Type Weight in lbs Pre/Post Dialysis Refused With clothes 129.471969954489 BP Diastolic BP Location Tested BP Systolic BP Type 68 103 sitting Fetus Heart Rate Present Fetus Movement Comments doing well with occasional h eadaches and bouts of nausea. zofran sent to pharmacy. new ob folder given to pt that has safe meds for . new ob labs done today and anatomy screening given to patient. pt educated on nutrition and hydration. rtc in 4 weeks, sooner if needed. Flowsheet Date 11/09/2022 Lucas Score Blood Edema Fundus Height Fundus Units Glucose Ketones Leukocytes Nitrite Labor Signs Protein Cervic Dilation Cervic Effacement Cervic Station 30 cm none trace Type Weight in lbs Pre/Post Dialysis Refused With clothes 154.793220650015 BP Diastolic BP Location Tested BP Systolic BP Type 70 109 sitting Fetus Heart Rate Present A 145 Present Fetus Movement A Yes Comments 33 weeks, first baby.Only russell s had one visit up till now.Will get requested f/u US, GBS done today, needs sugar test still Flowsheet Date 11/23/2022 Lucas Score Blood Edema Fundus Height Fundus Units Glucose Ketones Leukocytes Nitrite Labor Signs Protein Cervic Dilation Cervic Effacement Cervic Station none 33 cm Type Weight in lbs Pre/Post Dialysis Refused Without clothes 156.39019682149 BP Diastolic BP Location Tested BP Systolic BP Type 68 102 sitting Fetus Heart Rate Present A 145 Present Fetus Movement A Yes Comments 35 weeks, passed sugar test, GBS was (-)good spiritsdiscussed where/[facility] ; no reason given... will try again for missing spine pictures Flowsheet Date 11/30/2022 Lucas Score Blood Edema Fundus Height Fundus Units Glucose Ketones Leukocytes Nitrite Labor Signs Protein Cervic Dilation Cervic Effacement Cervic Station none 34 cm none neg Type Weight in lbs Pre/Post Dialysis Refused With clothes 157.281195734123 BP Diastolic BP Location Tested BP Systolic BP Type 72 110 sitting Fetus Heart Rate Present A 143 Present Fetus Movement A Yes Comments 36 weeks, first babydoing we lllabor precautions/kick countscervix check next visit Flowsheet Date 12/07/2022 Lucas Score Blood Edema Fundus Height Fundus Units Glucose Ketones Leukocytes Nitrite Labor Signs Protein Cervic Dilation Cervic Effacement Cervic Station none 34 cm none neg 1cm 90% -3 Type Weight in lbs Pre/Post Dialysis Refused With clothes 161.231250260119 BP Diastolic BP Location Tested BP Systolic BP Type 69 108 sitting Fetus Heart Rate Present A 143 Present Fetus Movement A Yes Comments Cervix thin, os is midplane and easy to find. 1 cm open.active baby, no real ctx as yetlabor precautions, kick counts Flowsheet Date 12/14/2022 Lucas Score Blood Edema Fundus Height Fundus Units Glucose Ketones Leukocytes Nitrite Labor Signs Protein Cervic Dilation Cervic Effacement Cervic Station none 35 cm none neg Type Weight in lbs Pre/Post Dialysis Refused With clothes 163.181857077511 BP Diastolic BP Location Tested BP Systolic BP Type 62 110 sitting Fetus Heart Rate Present A 155 Present Fetus Movement A Yes Comments 38 weeks doing well, no ctx, active babylabor precautions / kick counts Flowsheet Date 12/21/2022 Lucas Score Blood Edema Fundus Height Fundus Units Glucose Ketones Leukocytes Nitrite Labor Signs Protein Cervic Dilation Cervic Effacement Cervic Station none 36 cm none neg 2cm 90% -2 Type Weight in lbs Pre/Post Dialysis Refused With clothes 165.694026692793 BP Diastolic BP Location Tested BP Systolic BP Type 75 117 sitting Fetus Heart Rate Present A 138 Present Fetus Movement A Yes Comments 39 weeks, favorable cervix f or first babydiscussed pros and cons of post dates induction; will plan Sunday12/25/22 inductionlabor precautions / kick counts Flowsheet Date 01/09/2023 Lucas Score Blood Edema Fundus Height Fundus Units Glucose Ketones Leukocytes Nitrite Labor Signs Protein Cervic Dilation Cervic Effacement Cervic Station Type Weight in lbs Pre/Post Dialysis Refused With clothes 141.045560222724 BP Diastolic BP Location Tested BP Systolic BP Type 74 112 sitting Fetus Heart Rate Present Fetus Movement Comments Menstrual History Last Menstrual Date Menses Monthly On Bcp Conception Prior Menses Frequency Hcg Plus Date Menarche Onset Age 0902/15/2022 false false 7 2 11 Genetic Screening And Infection History Question Response Note Patient's Age Will Be 35 Yea rs Or Older At Estimated Date of Delivery false Thalassemia (Mauritanian, Hungarian, Mediterranean, Or Background): MCV < 80 false Neural Tube Defect (Meningom yelocele, Spina Bifida, Or Anencephaly) false Congenital Heart Defect false Down Syndrome false Rayo-Sachs (eg, Scientologist, Cajun , Serbian-Adair) false Deya Disease false Sickle Cell Disease Or Trait () false Hemophilia Or Other Blood Disorders false Muscular Dystrophy false Cystic Fibrosis false Raleigh's Chorea false Mental Retardation/Autism true Sister 's son If Yes, Was Person Tested For Fragile X? false Other Inherited Genetic Or C hromosomal Disorder false Maternal Metabolic Disorder (eg, Type 1 Diabetes, PKU) false Patient's mom is Type 2 diab etic Patient Or Baby's Father Had A Child With Defects Not Listed Above false Recurrent Loss, Or A Stillbirth false Medications (including Suppl ements, Vitamins, Herbs, OTC Drugs), Illicit/Recreational Drugs, Alcohol true If Yes, Agent(s) And Strength/Dosage true Prenatals Any Other Genetic History false Live With Someone With TB Or Exposed To TB false Patient Or Partner Has Histo ry Of Genital Herpes false Rash Or Viral Illness Since Last Menstrual Period false History Of STD, Gonorrhea, C hlamydia, HPV, Syphilis false Other Infection History false History of HIV false History of Hepatitis false Prior GBS-infected child false Delivery Information Delivery Date Delivery Type Labor Anesthesia Weeks Gestation Incision Type Labor Labor Length Hrs Delivered By Post Complications Tubal Sterilization Discharge Date Comments 3 Induce d Regional-Ep idural 40 Cristóbal Rae MD false Discharge Information Feeding Method Contraceptive Method Maternal HG B and HCT Levels Combination
--- OUTSIDE RECORDS SUMMARY | 2024-08-25 20:52 | XMS_ITS | Clinical Summary ---
Author Organization [facility] Address [address] [place] [address] Care Team Providers Care Manager Domestic Name Role Phone Miles Luciano MD Primary Care Provider [phone] Allergies No known active allergies Medications MIRENA, 52 MG, 20 MCG/DAY IUD 1 Intra Uterine Device by Intrauterine route once. 3 Active Active Problems No known active problems Family History Medical History Relation Comments Diabetes Maternal Grandmother Heart Disease Maternal Grandmother Stroke Paternal Grandmother Relation Status Comments Maternal Grandmother Paternal Grandmother Social History Tobacco Use Types Packs/Day Years Used Date Smoking Tobacco: Never Smokeless Tobacco: Never Tobacco Cessation:Counseling Given: No Alcohol Use Standard Drinks/Week Comments No 0 (1 standard drink = 0.6 oz pur e alcohol) AUDIT-C Answer Date Recorded Frequency of Alcohol Consumption Never 11/23/2018 Average Number of Drinks Not on file 019 Frequency of Binge Drinking Not on file 0710/2018 PHQ-2 Answer Date Recorded Patient Health Questionnaire-2 Score 0 05/16/2023 Comments No Sex and Gender Information Value Date Recorded Sex Assigned at Not on file Legal Sex Female 11:22 PM MICROWAVE OVEN ASSEMBLER Gender Identity Not on file Sexual Orientation Not on file Last Filed Vital Signs Vital Sign Reading Time Taken Comments Blood Pressure 95/69 05/16/2023 4:30 PM MICROWAVE OVEN ASSEMBLER Pulse 78 05/16/2023 4:30 PM MICROWAVE OVEN ASSEMBLER Temperature 36.9 C (98.4 F) 05/16/2023 4:30 PM MICROWAVE OVEN ASSEMBLER Respiratory Rate 12 05/16/2023 4:30 PM MICROWAVE OVEN ASSEMBLER Oxygen Saturation 99% 05/16/2023 4:30 PM MICROWAVE OVEN ASSEMBLER Inhaled Oxygen Concentration - - Weight 67.6 kg (149 lb) 05/16/2023 4:30 PM MICROWAVE OVEN ASSEMBLER Height 170.2 cm (5' 7 ) 05/16/2023 4:30 PM MICROWAVE OVEN ASSEMBLER Body Mass Index 23.34 05/16/2023 4:30 PM MICROWAVE OVEN ASSEMBLER Plan of Treatment Health Maintenance Due Date Last Done Comments Cervical Cancer Screening Pa p Smear (Age 21 to 29) Every 3 Years 2002 Cervical Cancer Screening 2002 Annual Physical 2005 DTaP, Tdap and Td Vaccines ( 4 - Tdap) 2013 11/23/2006, 07/22/2004, 10/21/2003 Meningococcal B Vaccine (1 o f 2 - Standard) 2018 Hepatitis C 02/27/2020 Hepatitis B Vaccines (1 of 3 - 19+ 3-dose series) 2021 COVID-19 Vaccine (3 - 2023-2 5 season) 2024 10/13/2020, 09/22/2020 PHQ-2 (Physician [place]) 05/21/2024 05/16/2023 HPV Vaccines Completed 04/13/2015, 04/22/2014, 12/16/2013 Meningococcal Vaccine Aged Out No malaika anuj eligible based on patient's age to complete this topic Pneumococcal Vaccine: Pediatrics (0 to 5 Years) and At-Risk Patients (6 to 64 Years) Aged Out No longer eligible b ased on patient's age to complete this topic RSV Immunizations Under 20 Months Aged Out No longer eligible b ased on patient's age to complete this topic Insurance [facility] MEDICAL REIMBURSEMENTS OF [facility] CIGNA Care Teams Manager Domestic Relationship Specialty Start Date End Date Miles Luciano MD [address] [place] [phone] PCP - General FAMILY PRACTICE 11/22/21
--- OUTSIDE RECORDS SUMMARY | 2024-08-25 20:52 | XMS_ITS | Encounter Summary ---
Author Organization [facility] Address [address] [place] [id number] Care Team Providers Care Quality Assurance Group Leader Name Role Phone Charla Lozano MD Primary Care Provider [phone] Geena Field Primary Care Provider + Miles Luciano MD Primary Care Provider [phone] Encounter Details Date Type Department Care Team (Late st Contact Info) Description 10/26/2018 Abstract SFL CONVERSION [address] [place] [address] , Generic Conversion, Social History Tobacco Use Types Packs/Day Years Used Date Smoking Tobacco: Never Assessed Comments Unknown Sex and Gender Information Value Date Recorded Sex Assigned at Not on file Legal Sex Female 11:22 PM MECHANICAL ASSEMBLER Gender Identity Not on file Sexual Orientation Not on file documented as of this encounter Plan of Treatment Not on file documented as of this encounter Visit Diagnoses Not on filedocumented in this encounter Additional Health Concerns Infection Onset Date Last Indicated Resolved Time COVID-19 Rule Out 04/12/2020 04/12/2020 04/13/2020 6:36 AM MECHANICAL ASSEMBLER COVID-19 Rule Out 04/30/2020 04/30/2020 04/30/2020 3:04 PM MECHANICAL ASSEMBLER COVID-19 Confirmed 04/30/2020 04/30/2020 1 12:34 AM MECHANICAL ASSEMBLER documented as of this encounter Care Teams Quality Assurance Group Leader Relationship Specialty Start Date End Date Charla Lozano MD [address] [place] [phone] PCP - General FAMILY PRACTICE 11/23/18 01/24/20 Geena Field FNP [address] [place] [phone] PCP - General NURSE PRACTITIONER 01/25/20 11/21/21 Miles Luciano MD [address] [place] [phone] PCP - General FAMILY PRACTICE 11/22/21 documented as of this encounter
--- OUTSIDE RECORDS SUMMARY | 2024-08-25 21:15 | XMS_ITS | Encounter Summary ---
Author Organization [facility] Address [address] [place] [address] Care Team Providers Care Guest Services Director Name Role Phone Charla Lozano MD Primary Care Provider [phone] Geena Field Primary Care Provider + Miles Luciano MD Primary Care Provider [phone] Encounter Details Date Type Department Care Team (Late st Contact Info) Description 10/26/2018 Abstract SFL CONVERSION [address] [place] [address] , Generic Conversion, Social History Tobacco Use Types Packs/Day Years Used Date Smoking Tobacco: Never Assessed Comments Unknown Sex and Gender Information Value Date Recorded Sex Assigned at Not on file Legal Sex Female 11:22 PM POST DOCTORAL FELLOW Gender Identity Not on file Sexual Orientation Not on file documented as of this encounter Plan of Treatment Not on file documented as of this encounter Visit Diagnoses Not on filedocumented in this encounter Additional Health Concerns Infection Onset Date Last Indicated Resolved Time COVID-19 Rule Out 04/12/2020 04/12/2020 04/13/2020 6:36 AM POST DOCTORAL FELLOW COVID-19 Rule Out 04/30/2020 04/30/2020 04/30/2020 3:04 PM POST DOCTORAL FELLOW COVID-19 Confirmed 04/30/2020 04/30/2020 1 12:34 AM POST DOCTORAL FELLOW documented as of this encounter Care Teams Guest Services Director Relationship Specialty Start Date End Date Charla Lozano MD [address] [place] [phone] PCP - General FAMILY PRACTICE 11/23/18 01/24/20 Geena Field FNP [address] [place] [phone] PCP - General NURSE PRACTITIONER 01/25/20 11/21/21 Miles Luciano MD [address] [place] [phone] PCP - General FAMILY PRACTICE 11/22/21 documented as of this encounter
--- OUTSIDE RECORDS SUMMARY | 2024-08-25 21:15 | XMS_ITS | Clinical Summary ---
Author Organization [facility] Address [address] [place] [address] Care Team Providers Care Rail Express Clerk Name Role Phone Miles Luciano MD Primary Care Provider Allergies No known active allergies Medications MIRENA, [...] on file Legal Sex Female 11:22 PM COOK TORTILLA Gender Identity Not on file Sexual Orientation Not on file Last Filed Vital Signs Vital Sign Reading Time Taken Comments Blood Pressure 95/69 05/16/2023 4:30 PM COOK [employer]ILLA Pulse 78 05/16/2023 4:30 PM COOK [employer]ILLA Temperature 36.9 C (98.4 F) 05/16/2023 4:30 PM COOK [employer]ILLA Respiratory Rate 12 05/16/2023 4:30 PM COOK [employer]ILLA Oxygen Saturation 99% 05/16/2023 4:30 PM COOK [employer]ILLA Inhaled Oxygen Concentration - - Weight 67.6 kg (149 lb) 05/16/2023 4:30 PM COOK [place]ILL[place] Height 170.2 cm (5' 7 ) 05/16/2023 4:30 PM COOK [place]ILLA Body Mass Index 23.34 05/16/2023 4:30 PM COOK [place]ILLA Plan of Treatment Health Maintenance Due Date [...] 5 season) 2024 10/13/2020, 09/22/2020 PHQ-2 (Physician [place]) 05/21/2024 05/16/2023 HPV Vaccines Completed 04/13/2015, 04/22/2014, [...] patient's age to complete this topic Insurance [facility] MEDICAL REIMBURSEMENTS OF [facility] CIGNA Care Teams Rail Express Clerk Relationship Specialty Start Date End Date Miles Luciano MD [address] [place] [phone] PCP - General FAMILY PRACTICE 11/22/21
--- NOTE | 2024-08-25 21:17 | ED_ITS ---
HPI - Extremity Injury (Lower) General Chief Complaint: Extremity Injury, Lower Stated Complaint: lower extremity issue Time Seen by Provider: 08/25/24 21:07 Source: patient Mode of arrival: ambulatory Limitations: no limitations History of Present Illness HPI Narrative: 24 YEARS OLD WHITE FEMALE CAME TO THE ED BY PRIVATE CAR WITH PAIN AT THE LEFT 5TH TOE. PATIENT REPORTED THAT HER CELL PHONE DROPPED ON HER TOE 2 DAYS AGO CAUSING SEVERE PAIN. SHE DENIES OTHER INJURIES. Related Data Home Medications ?Medication ?Instructions ?Recorded ?Confirmed ?Last Taken ?Type No Home Medications 08/25/24 08/25/24 Unknown History Allergies Allergy/AdvReac Type Severity Reaction Status Date / Time No Known Drug Allergies Allergy Verified 10/01/12 21:26 Review of Systems Review of Systems: All systems reviewed & are unremarkable except as noted in HPI and below Exam Narrative: GENERAL APPEARANCE: WELL-DEVELOPED, WELL-NOURISHED SKIN: NORMAL COLOR VASCULAR: NORMAL PERIPHERAL PULSES, NORMAL CAPILLARY REFILL. MUSCULOSKELETAL: LEFT 5TH TOE IS SLIGHTLY TENDER, NO BRUISES, NO SWELLING, NO DEFORMITY, NO LACERATION NEUROLOGIC: ALERT AND ORIENTED ?3, EMERGENCY RESPONSE OFFICER IS NORMAL TESTED, NO GROSS MOTOR DEFICIT Course Vital Signs Vital signs: Vital Signs Temperature 36.3 C L 08/25/24 20:51 Pulse Rate 84 08/25/24 20:51 Respiratory Rate 18 08/25/24 20:51 Blood Pressure 128/76 08/25/24 20:51 Pulse Oximetry 99 08/25/24 20:51 Oxygen Delivery Room Air 08/25/24 20:51 Temperature 36.3 C L 08/25/24 20:51 Pulse Rate 84 08/25/24 20:51 Respiratory Rate 18 08/25/24 20:51 Blood Pressure 128/76 08/25/24 20:51 Pulse Oximetry 99 08/25/24 20:51 Oxygen Delivery Room Air 08/25/24 20:51 MDM - Extremity Injury (Lower) Imaging Data Radiologist's impression: Impressions Toe X-Ray 08/25/24 21:55 IMPRESSION: No acute fracture or dislocation. Critical Care Time Critical Care Time Critical Care Time: No Discharge Plan Discharge Clinical Impression: Pain in toe Patient Disposition: Home Condition: Stable Additional Instructions: RETURN IF SYMPTOMS ARE WORSENING , CALL YOUR FAMILY PHYSICIAN FOR APPOINTMENT, TAKE TYLENOL, IBUPROFEN NEEDED FOR ACHES AND PAIN, CONTINUE HOME MEDICATIONS. Patient Language: Urdu Prescriptions: No Action No Home Medications Follow-up/Referrals: Natalee,VANNA Carbone [Primary Care Provider] -
[2024-08-25 22:11] VITALS: BP 118/74; PULSE 82; RESP 18; O2SAT 98
== END 2024-08-25 22:11 | disposition home or self-care (01) ==
PROVIDERS: Emergency Provider Emergency Medicine; PCP Physician Assistant
DX: M79.675 Pain in left toe(s) (principal)
CPT/HCPCS: 73660; 99283